=== PATIENT | male | born 1995 | race Caucasian/White ===

== ENCOUNTER 2017-11-23 20:30 | Emergency (ER) | payer OTHER ==
[~2017-11-23] VITALS: Ht 188 cm; Wt 85.7 kg
[2017-11-23 20:30] VITALS: BP 106/68
== END 2017-11-23 21:31 | disposition home or self-care (01) ==
LOC: ER 20:34
DX: Z77.21 Contact with and (suspected) exposure to potentially hazardous body fluids (principal)
CPT/HCPCS: 36415; 86706; 86803; 99284; A4606; Z7610

== ENCOUNTER 2018-01-03 18:44 | Emergency (ER) | payer OTHER ==
[~2018-01-03] VITALS: Ht 188 cm; Wt 86.2 kg
[2018-01-03 19:07] VITALS: BP 132/75
[2018-01-03] MEDS ORDERED: TDAP [DIPH/PERTUSSIS/TET] 0.5 ML VIAL IM ONE ×2 (19:23→19:30)
[2018-01-03] MEDS ORDERED: CEPHALEXIN MONOHYDRATE 500 MG CAPSULE PO ONE ×2 (19:23→19:30)
== END 2018-01-03 21:57 | disposition home or self-care (01) ==
LOC: ER 18:46
DX: S10.91XA Abrasion of unspecified part of neck, initial encounter (principal); S20.319A Abrasion of unspecified front wall of thorax, initial encounter; Z59.0 Homelessness; X58.XXXA Exposure to other specified factors, initial encounter; Y93.89 Activity, other specified; Y92.89 Other specified places as the place of occurrence of the external cause; Y99.8 Other external cause status
CPT/HCPCS: 90715; A4606; Z7610